=== PATIENT | female | born 1970 | race Caucasian/White ===

== ENCOUNTER 2016-12-11 12:11 | Emergency (ER) | payer OTHER ==
[~2016-12-11] VITALS: Ht 172.7 cm; Wt 82.9 kg
[~2016-12-11 12:11] MED LIST: CALC500C3 PO; CARI350T28 PO; CEFD1CAP14 PO; CHN/1 PO; DOCU-94 PO; EPP3/2 IM; FERR1TAB13 PO; GABA-113 PO; HYDR-5688 PO; HYDR25TA4 PO; IPRASOL4 INH; LANS30CA12 PO; MISO200T PO; MOME200A INH; MONT1TAB3 PO; MULTTAB58 PO; PRLSR20 PO; SILV1CRE73 TOP; SUCR1TAB29 PO; TRMCR130WC TOP; VNTHFA/IN INH
[2016-12-11 12:19] VITALS: TEMP 36.7; Ht 172.7 cm; Wt 82.9 kg
[2016-12-11] MEDS ORDERED: SODIUM CHLORIDE 0.9% 1000ML 1,000 ML IV STA (12:44)
[2016-12-11] MEDS ORDERED: FAMOTIDINE IV INJ 20 MG in DEXTROSE 5% 100ML 100 ML IV STA (12:44)
[2016-12-11] MEDS ORDERED: ONDANSETRON INJ 2 MG/ML 2 ML VIAL IV STA (12:44)
[2016-12-11] MEDS ORDERED: PANTOprazole INJ 40 MG in SYRINGE 0 ML IV ONE (12:45)
--- NOTE | 2016-12-11 12:52 | EMERGENCY ROOM VISIT NOTE ---
History Report prepared by Maru: Nicholas Lee Under the Supervision of: Dr. Ulises Manrique D.O. First contact with patient: 12:37 Chief Complaint: VOMITING Stated Complaint: THROWING UP BLOOD History of Present Illness The patient is a 46 year old female who presents to the Emergency Room with complaints of hematemesis that began last night. She has a past medical history of a bleeding ulcer in her stomach, a partial nephrectomy, asthma, and hypotension. Yesterday, she states that her vomit was red in color. 2 hours ago , she notes that she ate a banana. 1 hour ago, she had another vomiting episode , but it was black in color. She has never thrown up this great of volume before. A couple minutes ago, she vomited 250 cc of dark blood. She is experiencing abdominal pain. She denies any other abnormal symptoms at this time. Source of History: patient Onset: last night Position: other (GI) Symptom Intensity: moderate Quality: other (Hematemesis) Timing: intermittent Associated Symptoms: + abdominal pain Note: She denies any other abnormal symptoms at this time. Review of Systems See HPI for pertinent positives & negatives. A total of 10 systems reviewed and were otherwise negative. Past Medical & Surgical Medical Problems: (1) Asthma (2) Hypotension Surgical Problems: (1) History of gastric bypass (2) Hx of partial nephrectomy Family History Cancer Diabetes mellitus Heart disease Social History Smoking Status: Current Some Day Smoker Smokeless Tobacco Use: No Alcohol Use: none Drug Use: none Marital Status: Housing Status: lives with family Occupation Status: employed Current/Historical Medications Scheduled Calcium Carbonate (Tums), 500 MG PO DAILY Cefdinir (Omnicef), 300 MG PO Q12H Docusate Sodium (Colace), 1 CAP PO BID Ferrous Sulfate (Kp Ferrous Sulfate), 1 TAB PO TID Gabapentin (Neurontin), 600 MG PO TID Hydrochlorothiazide (Hctz), 25 MG PO DAILY Ipratropium-Albuterol (Duoneb), 1 TREATMENT INH QID Lansoprazole (Prevacid), 30 MG PO BID Misoprostol (Cytotec), 200 MCG PO QID Mometasone Furoate-Formoterol (Dulera 200/5 Mcg), 2 PUFFS INH BID Montelukast Sodium (Singulair), 10 MG PO DAILY Multiple Vitamin (Multivitamin), 1 TAB PO DAILY Omeprazole (Prilosec), 20 MG PO BID Silver Sulfadiazine (Silvadene), 1 APPLN TOP DAILY Triamcinolone Acet (Aristocort 0.1%), 1 APPLN TOP BID Varenicline (Chantix), 1 TAB PO BID Scheduled PRN Albuterol Hfa (Ventolin Hfa), 2 PUFFS INH Q4 PRN for Wheezing Carisoprodol (Soma), 350 MG PO QID PRN for Muscle Spasms Epinephrine (Epipen), 0.3 MG IM UD PRN for ALLERGIC REACTION Hydrocodone/Acetaminophen 5MG/325MG ([place] 5MG/325MG), 1 TAB PO TID PRN for Pain Allergies Coded Allergies: Ampicillin (Verified Allergy, Severe, ANAPHYLAXIS, 12/11/16) Bee Venom (Verified Allergy, Severe, ANAPHYLAXIS, 12/11/16) Bismuth Subsalicylate (Verified Allergy, Severe, ANAPHYLAXIS, 12/11/16) Bupropion (Verified Allergy, Severe, ANAPHYLAXIS, 12/11/16) Clarithromycin (Verified Allergy, Severe, ANAPHYLAXIS, 12/11/16) Erythromycin (Verified Allergy, Severe, ANAPHYLAXIS, 12/11/16) Escitalopram (Verified Allergy, Severe, ANAPHYLAXIS, 12/11/16) Levofloxacin (Verified Allergy, Severe, ANAPHYLAXIS, 12/11/16) Moxifloxacin (Verified Allergy, Severe, ANAPHYLAXIS, 12/11/16) Penicillins (Verified Allergy, Severe, ANAPHYLAXIS, 12/11/16) Sulfamethoxazole w/Trimethoprim (Verified Allergy, Severe, ANAPHYLAXIS, ) Carbamazepine (Verified Allergy, Intermediate, HIVES, 12/11/16) Morphine (Verified Allergy, Intermediate, HIVES, 12/11/16) Soap (Verified Allergy, Intermediate, RASH,CHEMICAL ISABEL, 12/11/16) and chemical isabel Physical Exam Vital Signs Date Time Temp Pulse Resp B/P (MAP) Pulse Ox O2 Delivery O2 Flow Rate FiO2 12/11/16 16:35 120 18 115/70 98 Room Air 12/11/16 14:40 87 16 109/62 97 Room Air 12/11/16 12:38 120 18 106/77 94 Room Air 12/11/16 12:37 131 12/11/16 12:19 36.7 76 20 97/65 99 Room Air Physical Exam GENERAL: Patient is awake, alert, and in no acute distress. Patient is uncomfortable and very anxious appearing. EYES: The conjunctivae are clear. The pupils are round and reactive. EARS, NOSE, MOUTH AND THROAT: The nose is without any evidence of any deformity. Mucous membranes are moist tongue is midline NECK: The neck is nontender and supple. RESPIRATORY: Normal respiratory effort is noted there is no evidence of wheezing rhonchi or rales CARDIOVASCULAR: Tachycardic rate but regular rhythm, no definite murmurs noted to auscultation. No rubs or gallops normal S1 normal S2 GASTROINTESTINAL: The abdomen is soft but mildly distended. Bowel sounds are present in all quadrants. Abdomen is diffusely tender. No guarding or rigidity. RECTAL: Dark stool that was strongly heme positive. MUSCULOSKELETAL/EXTREMITIES: There is no evidence of gross deformity full range of motion is noted in the hips and shoulders SKIN: There is no obvious evidence of any rash. There are no petechiae, pallor or cyanosis noted. NEUROLOGIC: Patient is awake alert and oriented x3 Medical Decision & Procedures ER Provider Diagnostic Interpretation: Radiology results as stated below per my review and radiologist interpretation: CHEST ONE VIEW PORTABLE CLINICAL HISTORY: ABDOMINAL PAIN/GI pain. Nausea. COMPARISON STUDY: No previous studies for comparison. FINDINGS: The bones soft tissues and hemidiaphragms are normal. The cardiomediastinal silhouette is normal. The lungs are clear. The pulmonary vasculature is normal. IMPRESSION: Negative chest. The above report was generated using voice recognition software. It may contain grammatical, syntax or spelling errors. Electronically signed by: El Bustillo M.D. 12/11/2016 1:07 PM Dictated Date/Time: 12/11/2016 1:07 PM Laboratory Results 12/11/16 12:40 Red Blood Count 3.64, Mean Corpuscular Volume 92.6, Mean Corpuscular Hemoglobin 31.0, Mean Corpuscular Hemoglobin Concent 33.5, Mean Platelet Volume 9.5, Neutrophils (%) (Auto) 77.8, Lymphocytes (%) (Auto) 16.0, Monocytes (%) (Auto) 5.1, Eosinophils (%) (Auto) 0.5, Basophils (%) (Auto) 0.2, Neutrophils # (Auto) 13.18, Lymphocytes # (Auto) 2.72, Monocytes # (Auto) 0.87, Eosinophils # (Auto) 0.08, Basophils # (Auto) 0.03 12/11/16 12:40 Test 12/11/16 12:40 White Blood Count 16.95 K/uL (4.8-10.8) Red Blood Count 3.64 M/uL (4.2-5.4) Hemoglobin 11.3 g/dL (12.0-16.0) Hematocrit 33.7 % (37-47) Mean Corpuscular Volume 92.6 fL (80-100) Mean Corpuscular Hemoglobin 31.0 pg (25-34) Mean Corpuscular Hemoglobin Concent 33.5 g/dl (32-36) Platelet Count 676 K/uL (130-400) Mean Platelet Volume 9.5 fL (7.4-10.4) Neutrophils (%) (Auto) 77.8 % Lymphocytes (%) (Auto) 16.0 % Monocytes (%) (Auto) 5.1 % Eosinophils (%) (Auto) 0.5 % Basophils (%) (Auto) 0.2 % Neutrophils # (Auto) 13.18 K/uL (1.4-6.5) Lymphocytes # (Auto) 2.72 K/uL (1.2-3.4) Monocytes # (Auto) 0.87 K/uL (0.11-0.59) Eosinophils # (Auto) 0.08 K/uL (0-0.5) Basophils # (Auto) 0.03 K/uL (0-0.2) RDW Standard Deviation 49.7 fL (36.4-46.3) RDW Coefficient of Variation 14.8 % (11.5-14.5) Immature Granulocyte % (Auto) 0.4 % Immature Granulocyte # (Auto) 0.07 K/uL (0.00-0.02) Prothrombin Time 10.7 SECONDS (9.0-12.0) Prothromb Time International Ratio 1.0 (0.9-1.1) Activated Partial Thromboplast Time 33.3 SECONDS (21.0-31.0) Partial Thromboplastin Ratio 1.3 Urine Color YELLOW Urine Appearance CLEAR (CLEAR) Urine pH 5.5 (4.5-7.5) Urine Specific [place] 1.014 (1.000-1.030) Urine Protein NEG (NEG) Urine Glucose (UA) NEG (NEG) Urine Ketones 1+ (NEG) Urine Occult Blood NEG (NEG) Urine Nitrite NEG (NEG) Urine Bilirubin NEG (NEG) Urine Urobilinogen NEG (NEG) Urine Leukocyte Esterase NEG (NEG) Anion Gap 13.0 mmol/L (3-11) Est Creatinine Clear Calc Drug Dose 115.7 ml/min Estimated GFR () 122.1 Estimated GFR (Non- 105.4 BUN/Creatinine Ratio 24.3 (10-20) Calcium Level 9.3 mg/dl (8.5-10.1) Total Bilirubin 0.1 mg/dl (0.2-1) Direct Bilirubin < 0.1 mg/dl (0-0.2) Aspartate Amino Transf (AST/SGOT) 8 U/L (15-37) Alanine Aminotransferase (ALT/SGPT) 13 U/L (12-78) Alkaline Phosphatase 107 U/L (45-117) Total Protein 7.7 gm/dl (6.4-8.2) Albumin 3.3 gm/dl (3.4-5.0) Lipase 63 U/L (73-393) Laboratory results per my review. Medications Administered Medications (Trade) Dose Ordered Sig/Flynn Route Start Time Stop Time Status Last Admin Dose Admin Sodium Chloride 1,000 ml @ 999 mls/hr Q1H1M STAT IV 12/11/16 12:44 12/11/16 13:44 DC 12/11/16 12:44 999 MLS/HR Ondansetron HCl (Zofran Inj) 4 mg NOW STAT IV 12/11/16 12:44 12/11/16 12:46 DC 12/11/16 12:55 4 MG Pantoprazole Sodium 40 mg/ Syringe 10 ml @ 5 mls/min NOW ONCE IV 12/11/16 12:45 12/11/16 12:46 DC 12/11/16 13:07 5 MLS/MIN Famotidine 20 mg/ Dextrose 102 ml @ 200 mls/hr ONE STAT IV 12/11/16 12:44 12/11/16 13:14 DC 12/11/16 13:07 200 MLS/HR ED Course 1237: The patient was evaluated in room A11A. A complete history and physical examination were performed. 1244: Ordered Famotidine 20 mg/Dextrose 102 ml @ 200 mls/hr IV, Zofran Inj 4 mg IV, NSS 1,000 ml @ 999 mls/hr IV 1245: Ordered Pantoprazole Sodium 40 mg/Syringe 10 ml @ 5 mls/min IV 1440: Upon reevaluation, the patient is resting. I discussed results and treatment plan with her. She verbalizes agreement and understanding. I spoke with Jesica Britt PA-C of the [facility]. The patient will be evaluated for further management and care. 1630: The patient informed me that should would like to sign out AMA. Medical Decision Differential diagnosis: Etiologies such as diverticulosis, AVM, coagulopathy, colitis, inflammatory bowel disease, malignancy, Sade-Marin tear, esophagitis, peptic ulcer disease , variceal bleed, gastritis, epistaxis, fissure, hemorrhoids, as well as others were entertained. Nursing notes reviewed. The patient is a 46-year-old female who presented to emergency department for evaluation of coffee-ground emesis and signs of upper GI bleeding. The patient has a history of peptic ulcer disease. She also has a history of severe gastritis and has had similar symptoms in the past. She presented to the emergency department with tachycardia. She was treated with IV fluids and IV proton pump inhibitors as well as H2 blockers. She was reevaluated multiple times. I discussed the patient's laboratory and radiographic studies with her. [facility] to evaluate the patient in the emergency apartment for further management and disposition. The patient did not wish to stay in the hospital because she did not feel that she was receiving pain medication for this upper GI bleeding. It was explained to her that she was not completely stable and that she would have to sign out against medical advice. She was able to sign out against diploma medical assistant and did not wish to stay in the hospital any further. She was encouraged to return to the emergency Department immediately if she changed her mind otherwise she was encouraged to follow-up with her primary DrYuly as well as her primary soap chipper. Medication Reconcilliation Current Medication List: was personally reviewed by me Blood Pressure Screening Patient's blood pressure: Normal blood pressure Blood pressure disposition: Did not require urgent referral Consults Time Called: 1435 Consulting Physician: Jesica Britt PA-C - [facility] Returned Call: [phone] I discussed the patient's case with her. The patient will be evaluated for further management. Impression Primary Impression: Upper GI bleeding Additional Impressions: Vomiting Tachycardia Scribe Attestation The scribe's documentation has been prepared under my direction and personally reviewed by me in its entirety. I confirm that the note above accurately reflects all work, treatment, procedures, and medical decision making performed by me. Departure Information Dispostion Against Medical Advice Referrals Krishna Montiel M.D. (PCP) Patient Instructions My [facility] Problem Qualifiers Additional Impressions: Vomiting Vomiting type: unspecified Vomiting Intractability: non-intractable Nausea presence: with nausea Qualified Codes: R11.2 - Nausea with vomiting, unspecified
[2016-12-11 13:04] LABS: URINE APPEARANCE CLEAR (CLEAR); URINE BILIRUBIN NEG (NEG); URINE COLOR YELLOW; URINE NITRITE NEG (NEG); URINE PH 5.5 (4.5-7.5); URINE SPECIFIC GRAVITY 1.014 (1.000-1.030); UROBILINOGEN NEG (NEG)
--- NOTE | 2016-12-11 13:08 | DIAGNOSTIC IMAGING REPORT ---
CHEST ONE VIEW PORTABLE CLINICAL HISTORY: ABDOMINAL PAIN/GI pain. Nausea. COMPARISON STUDY: No previous studies for comparison. FINDINGS: The bones soft tissues and hemidiaphragms are normal. The cardiomediastinal silhouette is normal. The lungs are clear. The pulmonary vasculature is normal. IMPRESSION: Negative chest. The above report was generated using voice recognition software. It may contain grammatical, syntax or spelling errors. Electronically signed by: El Bustillo M.D. 12/11/2016 1:07 PM Dictated Date/Time: 12/11/2016 1:07 PM
[2016-12-11 13:13] LABS: MANUAL MICROSCOPIC REQUIRED? NO; REVIEW REQ? NO
[2016-12-11 13:17] LABS: BASO % 0.2 %; BASO ABS # 0.03 K/uL (0-0.2); COMPLETE YES; EOS % 0.5 %; HEMATOCRIT 33.7 % (37-47); IG% 0.4 %; LYMPH ABS # 2.72 K/uL (1.2-3.4); MEAN CELL VOLUME 92.6 fL (80-100); MEAN CORPUSCULAR HGB CONC 33.5 g/dl (32-36); MEAN PLATELET VOLUME 9.5 fL (7.4-10.4); MONO % 5.1 %; NEUT % 77.8 %; PLATELET COUNT 676 K/uL (130-400); RED BLOOD COUNT 3.64 M/uL (4.2-5.4); WHITE BLOOD COUNT 16.95 K/uL (4.8-10.8)
[2016-12-11 13:28] LABS: PARTIAL THROMBOPLASTIN RATIO 1.3; PROTHROMBIN TIME (PATIENT) 10.7 SECONDS (9.0-12.0)
[2016-12-11 13:36] LABS: ALT/SGPT 13 U/L (12-78); BLOOD UREA NITROGEN 17 mg/dl (7-18); BUN/CREATININE RATIO 24.3 (10-20); CALCIUM 9.3 mg/dl (8.5-10.1); CARBON DIOXIDE 20 mmol/L (21-32); CHLORIDE 104 mmol/L (98-107); GLUCOSE 95 mg/dl (70-99); POTASSIUM 3.4 mmol/L (3.5-5.1); SODIUM 137 mmol/L (136-145)
[2016-12-11 13:39] LABS: ALKALINE PHOSPHATASE 107 U/L (45-117); AST/SGOT 8 U/L (15-37)
[2016-12-11] MEDS ORDERED: ONDANSETRON INJ 2 MG/ML 2 ML VIAL IV PRN (15:45)
[2016-12-11] MEDS ORDERED: CARISOPRODOL 350 MG TAB PO PRN (16:15)
[2016-12-11] MEDS ORDERED: EPINEPHRINE ADULT AUTO-INJECT 0.3 MG SYR IM PRN (16:15)
[2016-12-11] MEDS ORDERED: ALBUTEROL HFA 8 GM INHALER INH PRN (16:15)
[2016-12-11] MEDS ORDERED: HYDROCODONE/ACETAMOPHEN 5/325MG TAB PO PRN (16:15)
[2016-12-11] MEDS ORDERED: HYDROCODONE/ACETAMOPHEN 5/325MG TAB ONE (16:19)
[2016-12-11 16:35] VITALS: BP 115/70; PULSE 120; O2SAT 98
--- NOTE | 2016-12-11 16:39 | Progress Note ---
Progress Note Date of Service Dec 11, 2016. Progress Note GI quick note: We received a consult on this pt who was a 46 y/o female who presented to ED w c/o hematemesis last night. She has hx of gastric bypass w anastomotic ulcer bleed. Last EGD 07/2016. She had been on Prevacid 30mg BID, also Carafate 1g QID. She is a smoker but trying to quit, now down to 4 cig a day. Her last episode of vomiting w blood was 250cc while in ED. She denies any dark tarry stools. VS stable but does appear tachycardic HR 120s, currently 103. Labs reviewed: WBC 16K, Hgb 11.2, around baseline, no signs of BUN elevation. Electrolytes and LFTs grossly normal. CXR negative. Exam: AAOx3, in NAD HR regular, no murmur or gallops CTA bilateral lungs Abd soft, non tender No edema on extremities. She was initially going to be admitted given tachycardia and we can place her for an add on EGD evaluation tomorrow by Dr. Juarez. Though she prefers to go home, and I did check - we had the opening for outpt EGD/Colonoscopy to be moved up to Sunday (12/13) vs Sunday (12/18) when these were originally scheduled. Pt again states that she does NOT want to be admitted. She states that she has an autistic child and is currently in grad school, also she is " not getting the meds she needs". She is aware or risks of leaving against medical advice including worsening bleeding, . Thus we will plan on outpt EGD and Colonoscopy instead on Wednesday 12/13 at 1:30P. I informed ED physician (Dr. Manrique) and the admitting physician (Dr. Onofre) regarding pt's decision.
[2016-12-11] MEDS ORDERED: ALBUT/IPRATROP 3MG/0.5MG NEB 3 ML VIAL INH SCH (17:00)
[2016-12-11] MEDS ORDERED: MISOPROSTOL 200 MCG TAB PO SCH (17:00)
[2016-12-11] MEDS ORDERED: PANTOprazole INJ 80 MG in DEXTROSE 5% 100ML IV SCH (17:15)
[2016-12-11] MEDS ORDERED: PANTOprazole INJ 40 MG in DEXTROSE 5% 100ML IV SCH (17:30)
--- NOTE | 2016-12-11 17:32 | History and Physical ---
History & Physical Date & Time of Service: Dec 11, 2016 at 17:18 Chief Complaint: Throwing Up Blood Primary Care Physician: Krishna Montiel M.D. History of Present Illness Source: patient Patient is a 46yo female with PMH of asthma, hypotension, gastric bypass in 2007 complication by anastomotic ulcers who presents with hematemesis starting last night. Patient was in normal state of health until 1:30am, when she woke up feeling nauseated and vomited bright red blood. Had another similar episode 20 minutes later. Nausea subsided and patient was able to go back to sleep. Patient had another episode at 10:30am that she described with a dark, "coffee grounds" appearance. Came to the ER for further evaluation. Had another episode of coffee grounds emesis that is documented in ER physician's note as 250cc. Patient has a history of anastomotic ulcer bleeds 2/2 gastric bypass surgery. Has discussed possible revision surgery with [facility] surgeons but has not felt well enough to pursue that option further. Last EGD with [facility] was 07/2016 and showed ulcer. Patient takes Prevacid 30mg BID, Carafate 1g QID. Continues to smoke cigarettes but has decreased to 4/day. Last took ibuprofen 2 weeks ago. Endorses feeling nauseous, weak, with mild diffuse abdominal pain. Denies lightheadedness, palpitations, CP, SOB, melena, hematochezia. Past Medical/Surgical History Medical Problems: (1) Asthma Status: Chronic (2) Hypotension Status: Chronic Surgical Problems: (1) Hx of partial nephrectomy Status: Resolved Family History Cancer Diabetes mellitus Heart disease Social History Smoking Status: Current Some Day Smoker (Endorses 4 cigarettes daily ) Smokeless Tobacco Use: No Alcohol Use: none Drug Use: none Marital Status: Occupational Status: employed Allergies Coded Allergies: Ampicillin (Verified Allergy, Severe, ANAPHYLAXIS, 12/11/16) Bee Venom (Verified Allergy, Severe, ANAPHYLAXIS, 12/11/16) Bismuth Subsalicylate (Verified Allergy, Severe, ANAPHYLAXIS, 12/11/16) Bupropion (Verified Allergy, Severe, ANAPHYLAXIS, 12/11/16) Clarithromycin (Verified Allergy, Severe, ANAPHYLAXIS, 12/11/16) Erythromycin (Verified Allergy, Severe, ANAPHYLAXIS, 12/11/16) Escitalopram (Verified Allergy, Severe, ANAPHYLAXIS, 12/11/16) Levofloxacin (Verified Allergy, Severe, ANAPHYLAXIS, 12/11/16) Moxifloxacin (Verified Allergy, Severe, ANAPHYLAXIS, 12/11/16) Penicillins (Verified Allergy, Severe, ANAPHYLAXIS, 12/11/16) Sulfamethoxazole w/Trimethoprim (Verified Allergy, Severe, ANAPHYLAXIS, ) Carbamazepine (Verified Allergy, Intermediate, HIVES, 12/11/16) Morphine (Verified Allergy, Intermediate, HIVES, 12/11/16) Soap (Verified Allergy, Intermediate, RASH,CHEMICAL ISABEL, 12/11/16) and chemical isabel Home Medications Scheduled Calcium Carbonate (Tums), 500 MG PO DAILY Cefdinir (Omnicef), 300 MG PO Q12H Docusate Sodium (Colace), 1 CAP PO BID Ferrous Sulfate (Kp Ferrous Sulfate), 1 TAB PO TID Gabapentin (Neurontin), 600 MG PO TID Hydrochlorothiazide (Hctz), 25 MG PO DAILY Ipratropium-Albuterol (Duoneb), 1 TREATMENT INH QID Lansoprazole (Prevacid), 30 MG PO BID Misoprostol (Cytotec), 200 MCG PO QID Mometasone Furoate-Formoterol (Dulera 200/5 Mcg), 2 PUFFS INH BID Montelukast Sodium (Singulair), 10 MG PO DAILY Multiple Vitamin (Multivitamin), 1 TAB PO DAILY Omeprazole (Prilosec), 20 MG PO BID Silver Sulfadiazine (Silvadene), 1 APPLN TOP DAILY Triamcinolone Acet (Aristocort 0.1%), 1 APPLN TOP BID Varenicline (Chantix), 1 TAB PO BID Scheduled PRN Albuterol Hfa (Ventolin Hfa), 2 PUFFS INH Q4 PRN for Wheezing Carisoprodol (Soma), 350 MG PO QID PRN for Muscle Spasms Epinephrine (Epipen), 0.3 MG IM UD PRN for ALLERGIC REACTION Hydrocodone/Acetaminophen 5MG/325MG ([place] 5MG/325MG), 1 TAB PO TID PRN for Pain Review of Systems Ten systems reviewed and negative except as noted in the HPI. Physical Exam Vital Signs Date Time Temp Pulse Resp B/P (MAP) Pulse Ox O2 Delivery O2 Flow Rate FiO2 12/11/16 16:35 120 18 115/70 98 Room Air 12/11/16 14:40 87 16 109/62 97 Room Air 12/11/16 12:38 120 18 106/77 94 Room Air 12/11/16 12:37 131 12/11/16 12:19 36.7 76 20 97/65 99 Room Air General Appearance: + mild distress (Anxious appearing) Head: normocephalic, atraumatic Eyes: normal inspection, PERRL, sclerae normal ENT: hearing grossly normal Neck: supple, no adenopathy, thyroid normal, trachea midline Respiratory/Chest: chest non-tender, + wheezing (Diffuse wheezing on exam 2/2 chronic asthma) Cardiovascular: no murmur, + tachycardia Abdomen/GI: normal bowel sounds, soft, no organomegaly, + tenderness (Slight TTP in RLQ, LLQ) Back: normal inspection, no CVA tenderness Extremities/Musculoskelatal: normal inspection, no calf tenderness, normal capillary refill, no pedal edema Neurologic/Psych: alert, normal mood/affect, oriented x 3 Skin: normal color, warm/dry, no rash Diagnostics Laboratory Results Results Past 24 Hours Test 12/11/16 12:40 Range/Units White Blood Count 16.95 4.8-10.8 K/uL Red Blood Count 3.64 4.2-5.4 M/uL Hemoglobin 11.3 12.0-16.0 g/dL Hematocrit 33.7 37-47 % Mean Corpuscular Volume 92.6 80-100 fL Mean Corpuscular Hemoglobin 31.0 25-34 pg Mean Corpuscular Hemoglobin Concent 33.5 32-36 g/dl Platelet Count 676 130-400 K/uL Mean Platelet Volume 9.5 7.4-10.4 fL Neutrophils (%) (Auto) 77.8 % Lymphocytes (%) (Auto) 16.0 % Monocytes (%) (Auto) 5.1 % Eosinophils (%) (Auto) 0.5 % Basophils (%) (Auto) 0.2 % Neutrophils # (Auto) 13.18 1.4-6.5 K/uL Lymphocytes # (Auto) 2.72 1.2-3.4 K/uL Monocytes # (Auto) 0.87 0.11-0.59 K/uL Eosinophils # (Auto) 0.08 0-0.5 K/uL Basophils # (Auto) 0.03 0-0.2 K/uL RDW Standard Deviation 49.7 36.4-46.3 fL RDW Coefficient of Variation 14.8 11.5-14.5 % Immature Granulocyte % (Auto) 0.4 % Immature Granulocyte # (Auto) 0.07 0.00-0.02 K/uL Prothrombin Time 10.7 9.0-12.0 SECONDS Prothromb Time International Ratio 1.0 0.9-1.1 Activated Partial Thromboplast Time 33.3 21.0-31.0 SECONDS Partial Thromboplastin Ratio 1.3 Urine Color YELLOW Urine Appearance CLEAR CLEAR Urine pH 5.5 4.5-7.5 Urine Specific [place] 1.014 1.000-1.030 Urine Protein NEG NEG Urine Glucose (UA) NEG NEG Urine Ketones 1+ NEG Urine Occult Blood NEG NEG Urine Nitrite NEG NEG Urine Bilirubin NEG NEG Urine Urobilinogen NEG NEG Urine Leukocyte Esterase NEG NEG Sodium Level 137 136-145 mmol/L Potassium Level 3.4 3.5-5.1 mmol/L Chloride Level 104 98-107 mmol/L Carbon Dioxide Level 20 21-32 mmol/L Anion Gap 13.0 3-11 mmol/L Blood Urea Nitrogen 17 7-18 mg/dl Creatinine 0.70 0.60-1.20 mg/dl Est Creatinine Clear Calc Drug Dose 115.7 ml/min Estimated GFR () 122.1 Estimated GFR (Non- 105.4 BUN/Creatinine Ratio 24.3 10-20 Random Glucose 95 70-99 mg/dl Calcium Level 9.3 8.5-10.1 mg/dl Total Bilirubin 0.1 0.2-1 mg/dl Direct Bilirubin < 0.1 0-0.2 mg/dl Aspartate Amino Transf (AST/SGOT) 8 15-37 U/L Alanine Aminotransferase (ALT/SGPT) 13 12-78 U/L Alkaline Phosphatase 107 45-117 U/L Total Protein 7.7 6.4-8.2 gm/dl Albumin 3.3 3.4-5.0 gm/dl Lipase 63 73-393 U/L CXR normal Impression Assessment and Plan Patient is a 46yo female with PMH of asthma, hypotension, gastric bypass in 2007 complication by anastomotic ulcers who presents with hematemesis starting last night. Upper GI bleed: -Likely 2/2 anastomotic ulcer seen on EGD in 08/02 -Has history of bleeding ulcers 2/2 gastric bypass in 2007 -Leukocytosis of 17, slightly hypokalemic at 3.4 -Hgb close to baseline at 11.3 -BUN is normal -Planned to admit for obs and possible in-patient EGD -Per discussion with ROXANNE Winslow, patient decided to leave AMA -Plans to have EGD/colonoscopy performed in the out-patient setting on 12/13 at 1 :30pm -Per GI note, patient is aware of risks associated with leaving [facility] including worsening bleeding, Tachycardia: -2/2 anxiety, pain, GI losses from vomiting -HR originally 130; decreased with 1L of IVF -HR in 120s when patient decided to leave AMA Attending Addendum The patient was seen and examined in ER in presence of the significant other Came in with Coffee ground vomiting with significant h/o UGI Hemodynamically stable with no significant drop in Hb Advised to stay and Probable EGD arranged for tomorrow after discussion with the GI Risk of leaving the hospital explained in detailed to the patient, Unfortunately she Signed out AMA. DR Ainsley Onofre Level of Care Telemetry Resuscitation Status FULL RESUSCITATION VTE Prophylaxis VTE Risk Assessment Done? Y/N: Yes Risk Level: Low Given or contraindicated: T.E.DYuly Duong
[2016-12-11] MEDS ORDERED: FERROUS SULFATE 325 MG TAB PO SCH (18:00)
[2016-12-11] MEDS ORDERED: MONTELUKAST SOD 10 MG TAB PO SCH (21:00)
[2016-12-11] MEDS ORDERED: NON-FORMULARY MEDICATION (Omeprazole (Prilosec) 20 MG) PO SCH (21:00)
[2016-12-11] MEDS ORDERED: DOCUSATE SODIUM 100 MG CAP PO SCH (21:00)
[2016-12-11] MEDS ORDERED: NON-FORMULARY MEDICATION (Lansoprazole (Prevacid) 30 MG) PO SCH (21:00)
[2016-12-11] MEDS ORDERED: GABAPENTIN 600 MG TAB PO SCH (21:00)
[2016-12-11] MEDS ORDERED: VARENICLINE (CHANTIX) 1 MG TAB PO SCH (21:00)
[2016-12-12] MEDS ORDERED: CALCIUM CARBONATE 500 MG CHEWABLE PO SCH (09:00)
[2016-12-12] MEDS ORDERED: MULTIVITAMIN TAB PO SCH (09:00)
[2016-12-12] MEDS ORDERED: HYDROCHLOROTHIAZIDE 25 MG TAB PO SCH (09:00)
== END 2016-12-11 14:35 | disposition left against medical advice (07) ==
LOC: C.EDB 12:12 → C.EDA 14:35 → ENRESERV 15:55 → CANBEDREQ 18:37
DX: K92.2 Gastrointestinal hemorrhage, unspecified (principal); K92.0 Hematemesis; R00.0 Tachycardia, unspecified; K27.9 Peptic ulcer, site unspecified, unspecified as acute or chronic, without hemorrhage or perforation; J45.909 Unspecified asthma, uncomplicated; I95.9 Hypotension, unspecified; F17.200 Nicotine dependence, unspecified, uncomplicated; Z90.5 Acquired absence of kidney; Z98.84 Bariatric surgery status; Z83.3 Family history of diabetes mellitus